=== PATIENT | female | born 1935 | race Caucasian/White ===

== ENCOUNTER → 2017-02-17 | Day surgery (SDC) | payer MEDICARE, OTHER ==
[~2017-02-17] VITALS: Ht 167.6 cm; Wt 53.1 kg
[~2017-02-17] MED LIST: 0.9% Sodium Chloride 1,000 ML IV PRN; LEVO75TA4 PO; Sodium Chloride LOK Flush 10 mL Syringe IV PRN; VENL150C98 PO; fentaNYL-PF 50 mCg/mL 2 mL Inj IVPUSH PRN
[2017-02-17 12:23] VITALS: BP 142/81; PULSE 82; RESP 16; O2SAT 95; O2SAT 97
[2017-02-17 14:08] VITALS: BP 115/59; PULSE 57; RESP 14; O2SAT 96
[2017-02-17 14:14] VITALS: BP 101/57; PULSE 59; RESP 14; O2SAT 95
[2017-02-17 14:24] VITALS: BP 119/66; PULSE 67; RESP 16; O2SAT 96
--- NOTE | 2017-02-17 14:41 | ENDO ---
[address] [address] ENDOSCOPY PROCEDURE PATIENT: LALO BLUM : 1935 MR#: [id number] ADMIT: 02/17/2017 JOB ID: [id number] DATE: 02/17/2017 PRIMARY PROVIDER: Lenny Caldwell MD. PROCEDURE: Esophagogastroduodenoscopy with biopsy and a colonoscopy with biopsy. INDICATIONS: An 81-year-old female with a history of abnormal imaging, epigastric pain, right lower quadrant pain, prior adhesions, and segmental terminal ileectomy with [id number] anastomosis between ileum and ascending colon. EQUIPMENT: GIF-H180J and a PCF-H190L. SEDATION: 5 mg Versed, 100 mcg fentanyl. COMPLICATIONS: None identified. BOWEL PREPARATION: Fair. Adequate exam. PROCEDURE INFORMATION: After the risks and benefits were explained, written and verbal informed consent was obtained, the patient was brought into the endoscopy suite and placed in the left lateral decubitus position. Sedation was achieved as above, the scope introduced into the mouth through the bite block, and advanced to the second portion of the duodenum. The scope was slowly withdrawn to carefully examine the mucosa for any defects or lesions. Retroflexed views were accomplished in the stomach. The stomach was decompressed and the scope removed the patient who tolerated the procedure well. The patient was then turned around. A digital rectal examination was accomplished. Mild internal hemorrhoids appreciated. The scope was introduced into the rectum and advanced to the cecum as identified by the appendiceal orifice and ileocecal valve. The scope was slowly withdrawn to carefully examine the mucosa for any defects or lesions. Multiple direct views were made through the dentate line for exclusion of pathology. The colon was decompressed, the scope removed the patient who tolerated the procedure well. FINDINGS: 1. Duodenum: This appeared visually normal from the bulb through to the second portion. 2. Stomach: No outlet obstruction. No ulcers. No mass lesions. There was a small eroded area in the mid body of the stomach. I took a biopsy from this location specifically and there was a considerable amount of ongoing oozing of blood following the biopsy. I applied hot forceps to slow the bleeding but it did not stop entirely. We therefore elected to place a 360 resolution clip over the biopsy site for hemostasis. Otherwise, retroflexed views of the LES were unremarkable. No other gastric pathology. 3. Esophagus: The squamocolumnar junction correlated with the top of the gastric folds. GEJ was at 36 cm from the incisors. No acute erosive changes. No strictures. No mass lesions. 4. Colon: Normal-appearing ileocecal valve and cecum. In the ascending colon, there was a [id number] patent anastomosis. On the small bowel side of the anastomosis was a slightly bunched-up, nodular appearance to the mucosa in one location. This was photographed and I took a biopsy to exclude any underlying adenomatous change. Otherwise, the patient had a fairly tortuous left colon with extensive diverticulosis. There were moderate internal hemorrhoids and one of these appeared to be reasonably well engorged with some eroded mucosa on the rectal side of the dentate line. We irrigated this and analyzed it for quite some time. We then decided to take a small biopsy from the irritated-appearing mucosa for exclusion of any adenomatous features. I did not retroflex based on the smaller size of the patient's rectum in general. ENDOSCOPIC DIAGNOSES: 1. Gastric erosion. 2. Post biopsy bleeding treated with hot forceps and endoclip. 3. Subtle sliding hiatal hernia. 4. Patent ileocolonic anastomosis. 5. Small bowel nodule at anastomosis. 6. Diverticulosis. 7. Inflamed and engorged hemorrhoids--suspect rectal prolapse. RECOMMENDATIONS: 1. Await histopathology. 2. Follow up on histo in GI clinic with Rachael Burton in the next couple of weeks. 3. Surveillance endoscopy is not anticipated unless there are concerning underlying histopathologic findings.
--- NOTE | 2017-02-23 15:04 | PATH ---
SURGICAL PATHOLOGY Attending Physician:Terrance Castaneda CASE STATUS: Signed Out PATIENT NAME: LALO BLUM PID: [id number] : 1935 DATE COLLECTED:02/17/2017 00:00 SPECIMEN: 1: Gastric, Biopsy 2: Colon, Biopsy 3: Rectum, Biopsy CLINICAL HISTORY: EPIGASTRIC PAIN 1). GASTRIC BIOPSY 2). ANASTOMOSIS COLON BIOPSY 3). RECTAL BIOPSY FINAL DIAGNOSIS: 1. Stomach, Biopsy: Gastric body mucosa with chronic gastritis. Negative for Helicobacter organisms by immunohistochemistry. Negative for intestinal metaplasia, dysplasia or malignancy. 2. Anastomosis, Colon, Biopsy: Small bowel mucosa with focal mild active inflammation. Negative for dysplasia or malignancy. 3. Rectum Biopsy: Colorectal mucosa with erosion. Negative for dysplasia or malignancy. ICD10: R10.13 GROSS DESCRIPTION: The specimen is received in three formalin filled containers labeled with the patient's name. 1). The specimen is labeled "gastric erosion" and consists of a 0.3 x 0.2 x 0.2 CM portion of tissue which is entirely submitted in cassette 1A. 2). The specimen is labeled "anastomosis colon" and consists of a 0.4 x 0.2 x 0.1 CM portion of tissue which is entirely submitted in cassette 2A. 3). The specimen is labeled "rectal" and consists of a less than 0.1 CM portion of tissue which is entirely submitted in cassette 3A. 02/18/2017DC MICRO DESCRIPTION: Part 1: An immunohistochemical stain was performed to evaluate for Helicobacter organisms and is negative. A control stain showed appropriate reactivity. * This test was developed and its performance characteristics determined by [email or web address]. It has not been cleared or approved by the U.S. Food and Drug Administration. The FDA has determined that such clearance or approval is not necessary. This test is used for clinical purposes. It should not be regarded as investigational or for research. ICD-9 CODES: CPT CODES: 1: 81954, 07083 2: 88329 3: 18232 Electronically Signed Out Federico Velásquez MD, Ph.D. [facility] Pathology [facility], [place] [address] Technical component performed at [facility], [facility] [address], [place], [address]
== END | disposition home or self-care (01) ==
LOC: END 00:16
PROVIDERS: ATTEND Internal Medicine Gastroenterology
DX: K57.30 Diverticulosis of large intestine without perforation or abscess without bleeding (principal); K64.8 Other hemorrhoids; K29.50 Unspecified chronic gastritis without bleeding; K25.9 Gastric ulcer, unspecified as acute or chronic, without hemorrhage or perforation; K44.9 Diaphragmatic hernia without obstruction or gangrene; K76.0 Fatty (change of) liver, not elsewhere classified; K74.60 Unspecified cirrhosis of liver; Z98.0 Intestinal bypass and anastomosis status; R19.7 Diarrhea, unspecified
CPT/HCPCS: 43239; 45380; 99153; G0500; J2250; J3010; J7030